=== PATIENT | female | born 1960 | race Caucasian/White ===

== ENCOUNTER → 2017-01-14 | Outpatient (CLI) | payer OTHER | LOC: FIMAGING 08:15 | PROVIDERS: ATTEND Physician Assistant | DX: Z12.31 Encounter for screening mammogram for malignant neoplasm of breast (principal) | CPT/HCPCS: G0202 ==

== ENCOUNTER 2018-07-31 17:25 | Emergency (ER) | payer OTHER ==
[2018-07-31 17:32] VITALS: BP 131/86
--- NOTE | 2018-07-31 17:48 | EDPHY ---
H & P Time Seen by Provider: 07/31/18 17:35 HPI/ROS: CHIEF COMPLAINT: Left knee injury HISTORY OF PRESENT ILLNESS: Patient jumped down off a retaining wall and her knee buckled laterally, just happened prior to arrival. Lateral pain worse with standing. Does not have hip or ankle injury. REVIEW OF SYSTEMS: No weakness or numbness distally PAST MEDICAL HISTORY: Negative Social history: Lev Granda patient General Appearance: Alert and conversant, cooperative. Does not have fusion, no patellar tenderness. Stable to the varus and valgus stress and Guido's negative. Anterior and posterior drawer stable. She does have pain with varus stress on the lateral collateral ligament. Flex to 90 and full extension. Skin intact. Normal motor sensory and dorsalis pedis pulse in the left foot. Emergency Department course/MDM: Likely acute LCL strain. X-ray knee immobilizer. Declined pain medication in addition to the Motrin she took pre-hospital. Smoking Status: Never smoked Constitutional: Initial Vital Signs Temperature (C) 36.5 C 07/31/18 17:29 Heart Rate 90 07/31/18 17:29 Respiratory Rate 18 07/31/18 17:29 Blood Pressure 131/86 H 07/31/18 17:29 O2 Sat (%) 94 07/31/18 17:29 O2 Delivery Mode Room Air Allergies/Adverse Reactions: Penicillins Allergy (Intermediate, Verified 07/31/18 17:28) Hives Home Medications: Medication Instructions Recorded Hormone Replacement Therapy 09/01/13 MDM/Departure - MDM Imaging Results: Imaging Impressions Knee X-Ray 07/31/18 17:43 Impression: Minimal early degenerative change medial and patellofemoral compartments. No evidence for acute osseous abnormality left knee. Imaging: I viewed and interpreted images myself - Depart Disposition: Home, Routine, Self-Care Clinical Impression: Sprain of lateral collateral ligament of left knee, initial encounter Condition: Good Instructions: Knee Sprain (ED) Additional Instructions: Activity as tolerated. Please follow up with Dr. Douglas or other orthopedist as arranged by her primary care provider, this week. Referrals: Lev Granda PA [Primary Care Provider] - As per Instructions Rick Douglas MD [Medical Doctor] - As per Instructions
== END 2018-07-31 18:15 | disposition home or self-care (01) ==
DX: S83.422A Sprain of lateral collateral ligament of left knee, initial encounter (principal); W17.89XA Other fall from one level to another, initial encounter
CPT/HCPCS: L1830